=== PATIENT | male | born 1980 ===

== ENCOUNTER 2021-09-21 12:32 | Emergency (ER) | payer OTHER ==
[~2021-09-21] VITALS: Ht 170.2 cm; Wt 72.6 kg
[~2021-09-21 12:32] MED LIST: ACET325; CEPH500 PO; DOXY100 PO; LOSA25 PO; NAPR500 PO; NAPR550 PO; OXYACE5T PO; PROM25 PO; Percocet 5-3251 EACH PO; RXHYDACE PO
[2021-09-21 13:47] LABS: BASOPHILS ABSOLUTE AUTO 0.07 K/mm3 (0.00-0.23); BASOPHILS PERCENT AUTO 1 % (0-2); EOSINOPHILS ABSOLUTE AUTO 0.24 K/mm3 (0.00-0.68); EOSINOPHILS PERCENT AUTO 3 % (0-6); IMMATURE GRAN ABSOLUTE AUTO 0.02 K/mm3 (0.00-0.10); IMMATURE GRAN PERCENT AUTO 0 % (0-1); LYMPHOCYTES ABSOLUTE AUTO 2.11 K/mm3 (0.84-5.20); LYMPHOCYTES PERCENT AUTO 25 % (21-46); MONOCYTES ABSOLUTE AUTO 0.74 K/mm3 (0.16-1.47); MONOCYTES PERCENT AUTO 9 % (4-13); Mean Corpuscular HGB 27.3 pg (26.0-34.0); Mean Corpuscular HGB Conc 31.9 g/dL (31.5-36.5); Mean Corpuscular Volume 86 fL (80-100); Mean Platelet Volume 9.4 fL (9.1-12.4); NEUTROPHILS ABSOLUTE AUTO 5.24 K/mm3 (1.96-9.15); NEUTROPHILS PERCENT AUTO 62 % (41-73); Platelet Count 224 K/mm3 (150-400); RDW Coefficient Variation 13.9 % (11.7-14.2); RDW Standard Deviation 43.3 fL (35.1-46.3); White Blood Cell Count 8.42 K/mm3 (4.00-11.30)
[2021-09-21 14:12] LABS: Alanine Aminotransfer (ALT/SGP 31 U/L (12-78); Albumin, Blood 4.2 g/dL (3.4-5.0); Alk Phos 106 U/L (50-136); Anion Gap 5 mmol/L (6-16); Aspartate Aminotrans (AST/SGOT 29 U/L (12-37); Bilirubin, Total 0.3 mg/dL (0.1-1.0); Blood Urea Nitrogen 12 mg/dL (8-24); Bun/Creatinine Ratio 13.7 (12.0-20.0); CO2, Blood 29 mmol/L (21-32); CPK Creatine Kinase 308 U/L (39-308); Calcium, Blood 9.5 mg/dL (8.5-10.1); Chloride, Blood 107 mmol/L (98-108); Creatine Kinase MB 2.8 ng/mL (0.0-3.6); Creatine Kinase MB Index 0.9 (0.0-4.0); Creatinine, Blood 0.88 mg/dL (0.60-1.20); Glomerular Filtration Rate >60 (60-); Glucose, Blood 102 mg/dL (70-99); Potassium, Blood 4.2 mmol/L (3.5-5.5); Sodium, Blood 141 mmol/L (136-145); Total Protein, Blood 8.2 g/dL (6.4-8.2)
[2021-09-21 14:58] LABS: Source, Urine Clean Catch
[2021-09-21 15:05] LABS: Bilirubin, Urine Neg (Neg); Blood, Urine 1+ (Neg); Glucose Qualitative, Urine Neg (Neg); Ketones, Urine Neg (Neg); Leukocyte Esterase, Urine Neg (Neg); Nitrite, Urine Neg (Neg); Protein, Urine 2+ (Neg); Urobilinogen, Urine NORM (Normal); pH, Urine 6.5 (5.0-8.0)
[2021-09-21] MEDS ORDERED: ONDA4 PO (15:10)
[2021-09-21] MEDS ORDERED: Norco 5-325 Ta1 EACH PO (15:10)
[2021-09-21 15:14] LABS: Color, Urine Pale Yellow (P-Yellow)
[2021-09-21 15:15] LABS: Appearance, Urine Clear (Clear); Bacteria Mod /hpf; Squamous Epithelial Cells Few /hpf (Few); White Blood Cells, Urine 0-2 /hpf (0-5)
[2021-09-21 15:16] LABS: Amorphous Light (0-Heavy); Mucus Light (0-Heavy); Yeast/Fungi Urine Rare /hpf
== END 2021-09-21 15:22 | disposition home or self-care (01) ==
LOC: ER 12:32
PROVIDERS: Physician Assistant
DX: T20.00XA Burn of unspecified degree of head, face, and neck, unspecified site, initial encounter (principal); T23.052A Burn of unspecified degree of left palm, initial encounter; T23.051A Burn of unspecified degree of right palm, initial encounter; T20.07XA Burn of unspecified degree of neck, initial encounter; T21.01XA Burn of unspecified degree of chest wall, initial encounter; T21.02XA Burn of unspecified degree of abdominal wall, initial encounter; T31.0 Burns involving less than 10% of body surface; X08.8XXA Exposure to other specified smoke, fire and flames, initial encounter; Z79.899 Other long term (current) drug therapy
CPT/HCPCS: 16030; 36415; 80053; 81001; 82550; 82553; 85025; 87086; 90471; 90714; 96374; 96375; 96376; 99284-25; J2270; J2405; J7030